=== PATIENT | female | born 2000 | race Caucasian/White ===

== ENCOUNTER 2022-11-24 11:07 | Emergency (ER) | payer OTHER ==
[~2022-11-24] VITALS: Ht 170.2 cm; Wt 72.7 kg
[2022-11-24 11:44] VITALS: TEMP 98.5
[2022-11-24 13:19] VITALS: BP 162/85; PULSE 110; RESP 16
== END 2022-11-24 13:45 | disposition home or self-care (01) ==
LOC: EMS 11:15
DX: Z13.9 Encounter for screening, unspecified (principal); F32.A Depression, unspecified; I10 Essential (primary) hypertension
CPT/HCPCS: 99283; Z7502